=== PATIENT | female | born 1960 | race African-American/Black ===

== ENCOUNTER 2024-02-21 08:40 | Emergency (ER) | payer BC ==
[~2024-02-21] VITALS: Ht 167.6 cm; Wt 68.0 kg
[2024-02-21 08:43] VITALS: O2SAT 98
[2024-02-21] MEDS: ACETAMINOPHEN 325MG TABLET PO ONE (09:05)
[2024-02-21] MEDS ORDERED: TOPUD MT (09:38)
[2024-02-21 09:54] VITALS: BP 132/65; PULSE 72; RESP 17; TEMP 97.8
== END 2024-02-21 10:07 | disposition home or self-care (01) ==
LOC: ER 08:40
DX: S89.92XA Unspecified injury of left lower leg, initial encounter (principal); I10 Essential (primary) hypertension; E11.9 Type 2 diabetes mellitus without complications; Z86.73 Personal history of transient ischemic attack (TIA), and cerebral infarction without residual deficits; V09.9XXA Pedestrian injured in unspecified transport accident, initial encounter; Y93.89 Activity, other specified; Y92.89 Other specified places as the place of occurrence of the external cause; Y99.8 Other external cause status
CPT/HCPCS: 73562; 73590; 99284